=== PATIENT | male | born 1995 | race Caucasian/White ===

== ENCOUNTER → 2019-06-19 | Outpatient (REF) | payer OTHER | LOC: M SFHCLERA 13:56 | PROVIDERS: ATTEND Nurse Practitioner Family | DX: J02.9 Acute pharyngitis, unspecified (principal) ==

== ENCOUNTER → 2019-06-22 | Outpatient (REF) | payer OTHER | LOC: M SFHCLERA 19:40 | PROVIDERS: ATTEND Nurse Practitioner Family | DX: J02.9 Acute pharyngitis, unspecified (principal) ==